=== PATIENT | female | born 1965 | race Caucasian/White ===

== ENCOUNTER 2018-09-22 07:34 | Day surgery (SDC) | payer BC, OTHER ==
[~2018-09-22] VITALS: Ht 160 cm; Wt 74.1 kg
[~2018-09-22 07:34] MED LIST: LR 1,000 ML IV ONE; MOBI4TAB PO
[2018-09-22 08:17] LABS: HEMATOCRIT 42.1 % (36.0-47.0); HEMOGLOBIN 13.5 g/dl (12.0-15.5); MEAN CORPUSCULAR HEMOGLOBIN 29.9 pg (27.0-33.0); MEAN CORPUSCULAR HGB CONC 32.1 g/dl (32.0-36.5); MEAN CORPUSCULAR VOLUME 93.1 fl (80.0-96.0); PLATELET COUNT, AUTOMATED 237 10^3/uL (150-450); RED BLOOD COUNT 4.52 10^6/uL (4.00-5.40); WHITE BLOOD COUNT 4.4 10^3/uL (4.0-10.0)
[2018-09-22] MEDS ORDERED: SCOPOLAMINE 1MG TRANSDERMAL PATCH TOP ONE (08:30)
[2018-09-22] MEDS ORDERED: fentaNYL 100 MCG/2 ML INJECTION (J3010) As Ordered ONE (08:41)
[2018-09-22] MEDS ORDERED: MIDAZOLAM INJ 2 MG/2 ML VIAL (J2250) As Ordered ONE (08:41)
[2018-09-22] MEDS ORDERED: PROPOFOL 200 MG/20 ML VIAL As Ordered ONE ×2 (08:42→09:38)
[2018-09-22] MEDS ORDERED: ONDANSETRON 4MG/2ML VIAL (J2405) As Ordered ONE (08:42)
[2018-09-22] MEDS ORDERED: dexameTHASONE 4 MG/ML 1ML VIAL (J1100) As Ordered ONE ×2 (08:42→09:01)
[2018-09-22] MEDS ORDERED: KETOROLAC 60 MG/2 ML VIAL (J1885) As Ordered ONE (08:42)
[2018-09-22] MEDS ORDERED: LIDOCAINE 2% INJ 100 MG/5 ML SDV (FOR ANES.) As Ordered ONE (08:42)
[2018-09-22] MEDS ORDERED: METOCLOPRAMIDE INJ 10MG/2ML VIAL (J2765) As Ordered ONE (08:56)
[2018-09-22] MEDS ORDERED: ROCURONIUM BROMIDE 50 MG/5 ML VIAL As Ordered ONE (09:20)
[2018-09-22] MEDS ORDERED: SUCCINYLCHOLINE 100 MG/5 ML SYRINGE (J0330) As Ordered ONE (09:20)
[2018-09-22] MEDS ORDERED: ACETAMINOPHEN 1000MG 100ML IV BTL (OFIRMEV) (J0131 PER 10MG) As Ordered ONE (09:59)
[2018-09-22] MEDS ORDERED: PERCOCET 5MG/325MG TAB PO PRN ×2 (10:15→10:30)
[2018-09-22] MEDS ORDERED: ONDANSETRON 4MG/2ML VIAL (J2405) IV PRN (10:30)
[2018-09-22] MEDS ORDERED: LR 1,000 ML IV SCH (10:30)
[2018-09-22] MEDS ORDERED: METOCLOPRAMIDE INJ 10MG/2ML VIAL (J2765) IV PRN (10:30)
[2018-09-22] MEDS ORDERED: fentaNYL 100 MCG/2 ML INJECTION (J3010) IV PRN (10:30)
[2018-09-22 11:21] VITALS: BP 142/70
[2018-09-22] MEDS ORDERED: IBUPROFEN 800 MG TAB PO SCH (15:00)
--- NOTE | 2018-09-22 16:31 | ECGEPIP ---
Stationary ECG Study [facility] Test Date: 2018-09-22 Pat Name: FREEMAN RICKETTS Department: Room: - Gender: F Compensation And Benefits Advisor: : [id number] Requested By: CARLEE Willett Order Number: [id number] Reading MD: Dennis Echols Measurements Intervals [place] Rate: 82 P: -3 NM: 159 QRS: 9 QRSD: 88 T: 7 QT: 383 QTc: 449 Interpretive Statements Normal sinus rhythm Normal EKG Comparison tracing not on file Electronically Signed On 09-22-2018 16:31:08 EDT by Dennis Echols
--- NOTE | 2018-09-22 18:39 | RO ---
DATE OF PROCEDURE: 09/22/2018 Melody is a 52-year-old female with postmenopausal bleeding and fibroid uterus. After counseling in the office, a decision was made to proceed with a dilation and curettage (D and C), hysteroscopy. PREOPERATIVE DIAGNOSES: 1. Postmenopausal bleeding. 2. Fibroid uterus. POSTOPERATIVE DIAGNOSES: 1. Postmenopausal bleeding. 2. Fibroid uterus. 3. Submucosal myoma. PROCEDURE: 1. Dilation and curettage. 2. Hysteroscopy. SURGEON: Rolf Quintana DO ANIMAL RIDE MANAGER: ANESTHESIA: General COMPLICATIONS: None. ESTIMATED BLOOD LOSS: Less than 10 mL. SPECIMENS SENT TO THE LAB: Endometrial curettings. FINDINGS: A distorted endometrial cavity. Uterus sounded to approximately 6-7 cm in size with a submucosal myoma noted and the cavity was distorted. Bilateral tubal ostia were visualized. DESCRIPTION OF PROCEDURE: After obtaining informed consent, the patient was taken to the operating room where general anesthetic was found to be adequate. She was then draped and prepped in the usual sterile fashion in dorsal lithotomy position. At this point, a straight catheter of the bladder was performed for approximately 200 mL of clear urine. We then placed a weighted speculum in the posterior fornix of the vagina. Using a Rollins retractor, the anterior lip of the cervix was then grasped with a single-tooth tenaculum. The cervix was found to be stenotic. Careful dissection was done to open up the cervix. The uterus was then sounded to approximately 6-7 cm in size, cervix serially dilated. The hysteroscope was inserted. Upon inserting the hysteroscope, the cavity was found to be distorted with one fundal submucosal myoma noted. Bilateral tubal ostia visualized. At this point, the hysteroscope was removed and a sharp curettage of the endometrial lining was done. The tissues were sent to pathology for final diagnosis. The patient will be counseled during her postop visit as to the finding and further recommendations. At this point, all instruments were removed. Good hemostasis noted. The patient tolerated procedure well. She was then transferred to recovery room in stable condition.
== END 2018-09-22 11:25 | disposition home or self-care (01) ==
LOC: M SDC 07:34
PROVIDERS: ATTEND Obstetrics & Gynecology
DX: N95.0 Postmenopausal bleeding (principal); D25.0 Submucous leiomyoma of uterus; Z88.2 Allergy status to sulfonamides; Z91.013 Allergy to seafood; Z79.899 Other long term (current) drug therapy
CPT/HCPCS: 36415; 58558; 85027; 86850; 86900; 86901; 88305; 93005; J0131; J0330; J1100; J1885; J2250; J2405; J2765; J3010

== ENCOUNTER → 2018-12-11 | Outpatient (CLI) | payer BC, OTHER ==
[~2018-12-11] MED LIST changes: +EXCETAB33 PO; -LR 1,000 ML IV ONE; +PRED50TA PO
--- NOTE | 2018-12-12 04:33 | REP ---
Clinical: Left subclavicular swelling . Comparison: 06/11/2005 . Technique: PA and lateral. Findings: Frontal view suggests asymmetric opacity in the region of the left apex and correlation/follow-up may be warranted. Remainder of lung alejandre are essentially clear. No effusion. No pneumothorax. Mediastinum and cardiac silhouette appear normal. The skeletal structures are intact and normal. Impression: 1. Opacity in the region of the left lung apex. Follow-up chest CT with contrast may be warranted. Electronically Signed by Andrade Keller MD 12/12/2018 04:24 A
== END ==
LOC: M RAD 12:52
PROVIDERS: ATTEND Physician Assistant
DX: R59.0 Localized enlarged lymph nodes (principal)

== ENCOUNTER 2018-12-12 06:33 | Emergency (ER) | payer BC, OTHER ==
[~2018-12-12] VITALS: Ht 160 cm; Wt 72.7 kg
[~2018-12-12 06:33] MED LIST changes: -EXCETAB33 PO; -PRED50TA PO
[2018-12-12] MEDS ORDERED: diphenhydrAMINE INJ 50MG/ML VIAL (J1200) IV ONE (07:45)
[2018-12-12] MEDS ORDERED: ACETAMINOPHEN 500 MG TAB PO ONE (07:45)
[2018-12-12] MEDS ORDERED: METOCLOPRAMIDE INJ 10MG/2ML VIAL (J2765) IV ONE (07:45)
[2018-12-12] MEDS ORDERED: NS 1,000 ML IV ONE (07:45)
[2018-12-12 08:01] LABS: HEMATOCRIT 42.9 % (36.0-47.0); MEAN CORPUSCULAR HEMOGLOBIN 30.4 pg (27.0-33.0); MEAN CORPUSCULAR HGB CONC 32.6 g/dl (32.0-36.5); MEAN CORPUSCULAR VOLUME 93.1 fl (80.0-96.0); PLATELET COUNT, AUTOMATED 180 10^3/uL (150-450); RED BLOOD COUNT 4.61 10^6/uL (4.00-5.40); WHITE BLOOD COUNT 3.2 10^3/uL (4.0-10.0)
[2018-12-12 08:20] LABS: BLOOD UREA NITROGEN 8 MG/DL (7-18); C REACTIVE PROTEIN QUANTITATIV 1.51 MG/DL (0.00-0.30); CALCIUM LEVEL 8.9 MG/DL (8.5-10.1); CARBON DIOXIDE LEVEL 26 MEQ/L (21-32); CHLORIDE LEVEL 109 MEQ/L (98-107); CREATININE FOR GFR 0.89 MG/DL (0.55-1.30); GLOMERULAR FILTRATION RATE > 60.0 (>51); GLUCOSE, FASTING 89 MG/DL (70-100); POTASSIUM SERUM 3.7 MEQ/L (3.5-5.1); SODIUM LEVEL 140 MEQ/L (136-145)
[2018-12-12] MEDS ORDERED: ISOVUE-370 76% 100ML VIAL (Q9967) As Ordered ONE (08:31)
[2018-12-12 08:54] LABS: ERYTHROCYTE SEDIMENTATION RATE 34 mm/hr (0-30)
--- NOTE | 2018-12-12 09:55 | REP ---
CT BRAIN WITH AND WITHOUT CONTRAST: CT brain performed in the axial plane prior to and following the intravenous administration of 75 mL Isovue 370. The ventricles are normal in size and position with no midline shift or mass effect. The meade-white differentiation is well maintained. There is no evidence of acute intracranial hemorrhage or extra-axial fluid collection. There is no abnormal enhancement. Normal enhancing vascular structures are identified. Bone window examination is unremarkable. IMPRESSION: Negative pre- and post-IV contrast CT brain. Electronically Signed by Grover Meade MD 12/12/2018 05:05 P
[2018-12-12] MEDS ORDERED: EXCETAB33 PO (10:56)
[2018-12-12 11:07] VITALS: BP 132/80
[2018-12-12] MEDS ORDERED: PRED50TA PO (11:42)
[2018-12-14 00:06] LABS: Lyme Disease IgG/IgM Antibodie <0.91 ISR (0.00-0.90); Lyme Disease IgM Ab Quantitati <0.80 index (0.00-0.79)
== END 2018-12-12 11:13 | disposition home or self-care (01) ==
LOC: M ED 06:33
DX: G44.209 Tension-type headache, unspecified, not intractable (principal); I10 Essential (primary) hypertension; I47.1 Supraventricular tachycardia; Z79.899 Other long term (current) drug therapy; Z88.2 Allergy status to sulfonamides; Z91.013 Allergy to seafood
CPT/HCPCS: 36415; 70470; 80048; 85027; 85652; 86140; 86617; 96361; 96374; 96375; 99284; J1200; J2765; Q9967

== ENCOUNTER → 2018-12-14 | Outpatient (CLI) | payer BC, OTHER ==
[~2018-12-14] MED LIST changes: +EXCETAB33 PO; +ISOVUE-370 76% 100ML VIAL (Q9967) As Ordered ONE; +PRED50TA PO
--- NOTE | 2018-12-14 09:00 | REP ---
CT of the chest with IV contrast: Comparison is the plain film study of 12/11/2018 demonstrating a mass-like density in the apex of the left lung. By CT there is no lung mass. There is an expansile lesion at the anterior tip of the left first rib at the costochondral junction. In the head of the left first rib is fused with the manubrium. The lung alejandre are otherwise unremarkable. There is no mediastinal, hilar or axillary lymph node enlargement. The thoracic aorta is unremarkable. Cardiac size is normal. There is no pericardial effusion. The visualized upper abdominal contents are unremarkable. Impression: There is no lung mass or nodule in the left apex. There is an expansile lesion at the anterior tip of the left first rib at the costochondral junction. The head of the left first rib is fused with the manubrium. Consider radionuclide bone scan and / or MRI for further evaluation. Electronically Signed by Grover Sky MD 12/14/2018 08:51 A
== END ==
LOC: M RAD 07:26
PROVIDERS: ATTEND Physician Assistant
DX: R93.89 Abnormal findings on diagnostic imaging of other specified body structures (principal); R59.0 Localized enlarged lymph nodes
CPT/HCPCS: 71260; Q9967

== ENCOUNTER → 2018-12-19 | Outpatient (CLI) | payer BC, OTHER ==
[~2018-12-19] MED LIST changes: -ISOVUE-370 76% 100ML VIAL (Q9967) As Ordered ONE; +PROHANCE 279.3MG/ML 15ML VIAL (A9576) As Ordered ONE
--- NOTE | 2018-12-19 21:18 | REPVR ---
EXAM: MR Chest Without and With Contrast. EXAM DATE/TIME: 12/19/2018 6:12 PM CLINICAL HISTORY: 53 years old, female; Abnormal findings; Abnormal radiologic exam of lung or chest; Patient HX: PT states possible spider bite to the area in question; Additional info: Abnormal findings on dx imaging of oth body struct TECHNIQUE: Imaging protocol: MR chest without and with intravenous contrast. Contrast material: PROHANCE;Contrast volume: 14 ml;Contrast route: IV; COMPARISON: CT Chest with contrast 12/14/2018 7:45 AM FINDINGS: This study concentrates on the sternoclavicular joints and left clavicle. The left first rib appears partially fused with the manubrium of the sternum. Hyperostosis is visualized between the anterior left first rib and the adjacent clavicle, with surrounding soft tissue swelling and hypertrophic changes. There is enhancement of the borders of the first rib and clavicle at this area of hyperostosis. This enhancement is likely secondary to the hyperostosis, although superimposed infection cannot be excluded. Mild patchy edematous changes are identified within the left clavicle medially as well as the inferior right side of the manubrium of the sternum. This can be reactive, post traumatic, or due to osteomyelitis. Evaluation of the lungs on MRI is limited. No dislocation of the left clavicle. Minimal effusions are identified at the sternoclavicular joints bilaterally. A small amount of fluid is identified within the left subdeltoid/subacromial bursa. Evaluation of the left shoulder is limited. No left pleural effusion identified. The left hemithorax is incompletely visualized. There is a focal concavity or Schmorl's node involving the superior T4 endplate with adjacent marrow edema. Minimal edematous changes noted within the T1 vertebral body. Evaluation of the thoracic spine is limited. No significant left axillary lymphadenopathy visualized. IMPRESSION: 1. The left first rib appears partially fused with the manubrium of the sternum. 2. Hyperostosis is visualized between the anterior left first rib and the adjacent clavicle, with surrounding soft tissue swelling and hypertrophic changes. There is enhancement of the borders of the first rib and clavicle at this area of hyperostosis. This enhancement is likely secondary to the hyperostosis, although superimposed infection cannot be excluded. 3. Mild patchy edematous changes are identified within the left clavicle medially as well as the inferior right side of the manubrium of the sternum. This can be reactive, post traumatic, or due to osteomyelitis. 4. A small amount of fluid is identified within the left subdeltoid/subacromial bursa. 5. There is a focal concavity or Schmorl's node involving the superior T4 endplate with adjacent marrow edema. Minimal edematous changes noted within the T1 vertebral body. 6. Additional findings described above. 7. Clinical correlation and follow-up bone scan recommended. Electronically signed by: Burton Woods On 12/19/2018 21:18:31 PM
== END ==
LOC: M RAD 16:43
PROVIDERS: ATTEND Physician Assistant
DX: R93.89 Abnormal findings on diagnostic imaging of other specified body structures (principal)

== ENCOUNTER → 2019-01-26 | Outpatient (CLI) | payer BC, OTHER ==
[~2019-01-26] MED LIST changes: -PROHANCE 279.3MG/ML 15ML VIAL (A9576) As Ordered ONE
--- NOTE | 2019-01-26 15:16 | REP ---
WHOLE BODY BONE SCAN WITH SPECT IMAGES OF THE SPINE: HISTORY: T4 lesion. Correlation made with CT and MRI of the chest 12/14/2018 and 12/19/2018 respectively. Sagittal images of the thoracic spine from the chest CT exam shows what appears to be a Schmorl's node at the superior endplate of T4. Following the intravenous administration of 22 mCi of technetium 99m MDP, multiple images of the entire body are performed in various projections. SPECT images are performed of the spine in the sagittal, axial and coronal planes. No abnormal uptake is seen in any portion of the spine. There is moderately intense increased uptake in the region of the medial end of the left clavicle. The CT and MRI exams showed apparent fusion of the medial left clavicle and adjacent left 1st rib anteriorly with hyperostosis. Subchondral uptake is seen in the manubrium bilaterally as well as in the medial end of the right clavicle. There is mildly increased uptake at the sternomanubrial junction. There is mild increased uptake at the right acromioclavicular and glenohumeral joints. There is mild increased uptake in the costal cartilage of the anterior left 2nd rib, bilateral anterior 3rd ribs and right anterior 5th rib. There is increased uptake at the anterior end of the left 6th rib at the costochondral junction. There is mild symmetrical tarsal bone uptake. Renal and bladder activity are seen. IMPRESSION: No abnormal uptake in the spine, specifically there is no abnormal uptake at the T4 level at the site of a Schmorl's node seen on the CT chest images of 12/14/2018. Moderately intense focal increased uptake at the medial end of the left clavicle and anterior left first rib where there is fusion and hyperostosis. Mild periarticular uptake is seen at the right manubrial clavicular junction, at the sternomanubrial junction and in the region of the right shoulder. There is bilateral anterior costal cartilage uptake as discussed above. Electronically Signed by Grover Meade MD 01/26/2019 04:36 P
== END ==
LOC: M RAD 09:32
PROVIDERS: ATTEND Orthopaedic Surgery Orthopaedic Surgery of the Spine
DX: M54.6 Pain in thoracic spine (principal); R93.7 Abnormal findings on diagnostic imaging of other parts of musculoskeletal system
CPT/HCPCS: 78306; 78320; A9503

== ENCOUNTER → 2019-03-22 | Outpatient (REF) | payer OTHER | LOC: M LAB REF 17:12 | PROVIDERS: ATTEND Obstetrics & Gynecology | DX: R10.2 Pelvic and perineal pain (principal) ==

== ENCOUNTER → 2021-08-10 | Outpatient (CLI) | payer BC, OTHER | LOC: M WHC 07:04 | PROVIDERS: ATTEND Physician Assistant | DX: R14.2 Eructation (principal); R14.3 Flatulence; R14.1 Gas pain ==

== ENCOUNTER → 2022-03-11 | Outpatient (CLI) | payer BC, OTHER ==
[~2022-03-11] MED LIST changes: +EXCETAB32 PO; -EXCETAB33 PO; +LOSA25TA13 PO; +MELO7.5T35 PO
== END ==
LOC: M LABSMTC 10:25
PROVIDERS: ATTEND Anesthesiology
DX: Z01.818 Encounter for other preprocedural examination (principal); Z11.52 Encounter for screening for COVID-19

== ENCOUNTER 2022-03-16 12:21 | Day surgery (SDC) | payer BC, OTHER ==
[~2022-03-16] VITALS: Ht 160 cm; Wt 74.8 kg
[~2022-03-16 12:21] MED LIST changes: +NS 1,000 ML IV ONE
[2022-03-16] MEDS ORDERED: LIDOCAINE 2% 100MG/5ML SDV (FOR ANES.) As Ordered ONE (13:55)
[2022-03-16] MEDS ORDERED: propofoL 200 MG/20 ML VIAL As Ordered ONE (13:55)
[2022-03-16 14:25] VITALS: BP 179/82
== END 2022-03-16 14:34 | disposition home or self-care (01) ==
LOC: M OPP 12:21
PROVIDERS: ATTEND Surgery
DX: Z12.11 Encounter for screening for malignant neoplasm of colon (principal); K57.30 Diverticulosis of large intestine without perforation or abscess without bleeding; Z79.1 Long term (current) use of non-steroidal anti-inflammatories (NSAID); Z79.899 Other long term (current) drug therapy; Z88.2 Allergy status to sulfonamides; Z91.013 Allergy to seafood; Z86.16 Personal history of COVID-19; Z86.79 Personal history of other diseases of the circulatory system; Z86.39 Personal history of other endocrine, nutritional and metabolic disease; Z90.89 Acquired absence of other organs

== ENCOUNTER → 2022-06-11 | Outpatient (CLI) | payer BC, OTHER ==
[~2022-06-11] MED LIST changes: -NS 1,000 ML IV ONE
[2022-06-11 12:17] LABS: HEMATOCRIT 43.5 % (36.0-47.0); HEMOGLOBIN 13.8 g/dl (12.0-15.5); MEAN CORPUSCULAR HEMOGLOBIN 30.4 pg (27.0-33.0); MEAN CORPUSCULAR HGB CONC 31.7 g/dl (32.0-36.5); MEAN CORPUSCULAR VOLUME 95.8 fl (80.0-96.0); PLATELET COUNT, AUTOMATED 270 10^3/uL (150-450); RED BLOOD COUNT 4.54 10^6/uL (4.00-5.40); WHITE BLOOD COUNT 5.3 10^3/uL (4.0-10.0)
[2022-06-11 12:48] LABS: ALBUMIN 3.9 G/DL (3.2-5.2); ALKALINE PHOSPHATASE 83 U/L (46-116); ALT/SGPT 17 U/L (7.0-40); AST/SGOT 18 U/L (<34); BILIRUBIN,TOTAL 0.5 MG/DL (0.3-1.2); BLOOD UREA NITROGEN 14 MG/DL (9-23); CALCIUM LEVEL 9.5 MG/DL (8.5-10.1); CARBON DIOXIDE LEVEL 27 MMOL/L (20-31); CHLORIDE LEVEL 105 MMOL/L (98-107); CREATININE FOR GFR 0.77 MG/DL (0.55-1.30); GLOMERULAR FILTRATION RATE > 60.0 (>51); GLUCOSE, FASTING 91 MG/DL (60-100); POTASSIUM SERUM 4.7 MMOL/L (3.5-5.1); SODIUM LEVEL 137 MMOL/L (136-145)
== END ==
LOC: M WUC 10:02
PROVIDERS: ATTEND Internal Medicine
DX: I10 Essential (primary) hypertension (principal)

== ENCOUNTER → 2023-12-28 | Outpatient (CLI) | payer BC, OTHER | LOC: M WUC 14:47 | PROVIDERS: ATTEND Family Medicine | DX: R22.2 Localized swelling, mass and lump, trunk (principal) ==

== ENCOUNTER → 2024-01-18 | Outpatient (CLI) | payer BC | LOC: M RAD 12:17 | PROVIDERS: ATTEND Family Medicine | DX: R07.9 Chest pain, unspecified (principal); I72.2 Aneurysm of renal artery; K44.9 Diaphragmatic hernia without obstruction or gangrene ==

== ENCOUNTER → 2024-07-20 | Outpatient (CLI) | payer BC | LOC: M RAD 08:18 | PROVIDERS: ATTEND Internal Medicine Critical Care Medicine | DX: R91.8 Other nonspecific abnormal finding of lung field (principal) ==

== ENCOUNTER → 2025-02-08 | Outpatient (CLI) | payer BC ==
[~2025-02-08] MED LIST changes: -PRED50TA PO; +PRED50TA57 PO
== END ==
LOC: M RAD 10:34
PROVIDERS: ATTEND Internal Medicine Critical Care Medicine
DX: Q68.8 Other specified congenital musculoskeletal deformities (principal)
CPT/HCPCS: 78306; A9503